=== PATIENT | male | born 1975 | race Caucasian/White ===

== ENCOUNTER 2016-08-30 20:58 | Emergency (ER) | payer SELFPAY ==
[~2016-08-30 20:58] MED LIST: BACTRIM DS TABL1 TA1 PO; CLEOCIN HCL150 MG PO; LORTAB 5/500 TA1 TA2 PO; VOLTAREN75 MG PO
== END 2016-08-30 21:06 | disposition home or self-care (01) ==
LOC: CFTX 20:58
DX: M54.32 Sciatica, left side (principal); F17.200 Nicotine dependence, unspecified, uncomplicated
CPT/HCPCS: 99282